=== PATIENT | female | born 1930 | race Caucasian/White ===

== ENCOUNTER 2017-03-13 10:33 | Inpatient (IN) ==
[2017-03-13 10:54] LABS: MANUAL DIFF NEEDED? NO
[2017-03-13 11:01] LABS: BASO% 0.2 % (0.0-0.8); EOS# 0.03 X1000 (0.0-0.7); EOS% 0.5 % (0.0-10.0); HEMATOCRIT 36.5 % (37.0-47.0); HEMOGLOBIN 11.6 g/dL (12.0-16.0); IMM GRAN# 0.02 X1000 (0.0-0.04); IMM GRAN% 0.3 % (0.0-0.5); LYMPH# 0.68 X1000 (1.2-3.4); LYMPH% 11.2 % (20.5-51.1); MCHC 31.8 g/dL (33-37); MCV 94.3 FL (81-99); MONO# 0.51 X1000 (0.11-0.59); MONO% 8.4 % (1.7-9.3); MPV 10.9 FL (7.4-10.4); NEUT% 79.4 % (42.2-75.2); PLT 162 X1000 (130-400); RBC 3.87 XMIL (4.2-5.4)
--- NOTE | 2017-03-13 11:02 | EKG Report ---
Test Performed on : 03/13/2017 10:33:53 AM Test Reason : Chest Pain Blood Pressure : / mmHG Vent. Rate : 059 BPM Atrial Rate : 375 BPM P-R Int : 000 ms QRS Dur : 096 ms QT Int : 414 ms P-R-T Axes : 000 -34 054 degrees QTc Int : 409 ms Junctional rhythm. Left axis deviation Possible Anterior infarct (cited on or before 04-JAN-2014) Abnormal ECG When compared with ECG of 04-JAN-2014 15:54, Junctional rhythm. has replaced Sinus rhythm. Questionable change in initial forces of Lateral leads QT has shortened Unconfirmed Result
[2017-03-13 11:07] LABS: INR 1.39; PROTIME 14.9 Seconds (9.2-11.7)
[2017-03-13 11:18] LABS: ALBUMIN 4.2 g/dL (3.5-5.0); CALCIUM 9.3 mg/dL (8.8-10.2); MAGNESIUM 2.2 mg/dL (1.5-2.7); POTASSIUM 5.4 mmol/L (3.5-5.1); TOTAL BILIRUBIN 0.83 mg/dL (0.20-1.00); TOTAL PROTEIN 7.4 g/dL (6.3-8.3)
--- NOTE | 2017-03-13 11:34 | Diag Imaging Result Doc PS360 ---
EXAM: CHEST-PORTABLE HISTORY: fall TECHNIQUE: AP portable at 1126 COMMENT: There is an air-fluid level in a hiatal hernia. Left ventricle is somewhat prominent. There are some fibrotic opacities in the lung bases particularly in the area of the lingula. No evidence of pneumothorax or pleural effusion is present. The regional skeleton appears to be intact. IMPRESSION: Borderline cardiomegaly and hiatal hernia. Minimal atelectasis. Electronically signed by Rao Carmen 03/13/2017 11:31 AM
--- NOTE | 2017-03-13 11:42 | Diag Imaging Result Doc PS360 ---
EXAM: CT HEAD/C-SPINE W/O CONTRAST HISTORY: fall TECHNIQUE: CT of the head without contrast, CT of the cervical spine, low dose protocol COMMENT: The current study is compared with that of 01/18/2016. There is no evidence of mass effect, bleed, abnormal extra-axial fluid collection, or hydrocephalus. Compared to the previous study there has been no significant change. Cervical spine: There are degenerative changes in the atlantoaxial joint and particularly at the disc spaces of the C4-5, C5-6, and C6-C7 levels. There is also facet arthropathy at multiple levels with ankylosis of both C4-5 facet joints. No prevertebral soft tissue swelling is present and there is no evidence of acute fracture or subluxation. The appearance of the cervical spine has not changed significantly since 01/18/2016. IMPRESSION: No evidence of acute disease. Electronically signed by Rao Carmen 03/13/2017 11:39 AM
[2017-03-13 11:47] LABS: CK INDEX 3.2 (0.0-2.5); CK-MB 7.48 ng/mL (0.0-5.0)
[2017-03-13] MEDS: NS 1,000 ML IV SCH (22:39)
[2017-03-14 06:28] LABS: MANUAL DIFF NEEDED? NO
[2017-03-14 06:32] LABS: BASO% 0.2 % (0.0-0.8); EOS# 0.09 X1000 (0.0-0.7); EOS% 1.8 % (0.0-10.0); HEMATOCRIT 34.1 % (37.0-47.0); HEMOGLOBIN 10.7 g/dL (12.0-16.0); LYMPH# 0.66 X1000 (1.2-3.4); LYMPH% 13.3 % (20.5-51.1); MCH 29.6 PG (27-31); MCHC 31.4 g/dL (33-37); MCV 94.5 FL (81-99); MONO# 0.49 X1000 (0.11-0.59); MONO% 9.8 % (1.7-9.3); MPV 10.2 FL (7.4-10.4); NEUT% 74.9 % (42.2-75.2); PLT 151 X1000 (130-400); RBC 3.61 XMIL (4.2-5.4)
[2017-03-14 06:42] LABS: INR 1.64; PROTIME 17.8 Seconds (9.2-11.7)
[2017-03-14 06:50] LABS: ALBUMIN 3.8 g/dL (3.5-5.0); CALCIUM 8.5 mg/dL (8.8-10.2); POTASSIUM 4.6 mmol/L (3.5-5.1); TOTAL BILIRUBIN 0.68 mg/dL (0.20-1.00); TOTAL PROTEIN 6.5 g/dL (6.3-8.3)
[2017-03-14 07:24] LABS: CK INDEX 1.5 (0.0-2.5); CK-MB 9.08 ng/mL (0.0-5.0)
[2017-03-14 07:26] LABS: URINE MICRO REVIEW NEEDED? NO; URINE SOURCE VOIDED
[2017-03-14 07:35] LABS: BILIRUBIN URINE NEGATIVE (NEGATIVE); BLOOD URINE TRACE (NEGATIVE); COLOR YELLOW; GLUCOSE URINE NEGATIVE (NEGATIVE); LEUKOCYTES URINE NEGATIVE (NEGATIVE); NITRITE URINE NEGATIVE (NEGATIVE); PH URINE 5.5; PROTEIN URINE TRACE mg/dL (NEGATIVE); SP GRAVITY URINE 1.012; TURBIDITY URINE CLEAR (CLEAR); UROBILINOGEN URINE NORMAL (NORMAL)
[2017-03-14 07:36] LABS: UR EPITHELIAL CELLS <10 /HPF (<10); URINE BACTERIA NEGATIVE /HPF; URINE RBC <10 /HPF (<10); URINE WBC <10 /HPF (<10)
--- NOTE | 2017-03-14 08:49 | EKG Report ---
Test Performed on : 03/14/2017 05:56:20 AM Test Reason : cp Blood Pressure : / mmHG Vent. Rate : 058 BPM Atrial Rate : 058 BPM P-R Int : 160 ms QRS Dur : 102 ms QT Int : 446 ms P-R-T Axes : 047 -46 050 degrees QTc Int : 437 ms Sinus bradycardia. Left anterior fascicular block Cannot rule out Anterior infarct (cited on or before 04-JAN-2014) Abnormal ECG When compared with ECG of 13-MAR-2017 10:33, (Unconfirmed) Sinus rhythm. has replaced Junctional rhythm. Confirmed by Kulwinder DAVIS, Shmuel Leon ([id number]) on 03/16/2017 6:37:24 AM
[2017-03-14] MEDS: NORVASC PO SCH (09:24)
[2017-03-14] MEDS: FOLIC ACID PO SCH (09:24)
[2017-03-14] MEDS: CITRACAL + D PO SCH (09:24)
[2017-03-14] MEDS: CELEXA PO SCH (09:24)
[2017-03-14] MEDS: ZYLOPRIM PO SCH (09:24)
[2017-03-14] MEDS: NS 1,000 ML IV SCH (17:26)
[2017-03-14] MEDS: TYLENOL PO PRN (19:06)
[2017-03-15 05:04] LABS: ALLEN TEST YES; BE -0.3 mmoll (-3.0-3.0); BLOOD TYPE ARTERIAL; DRAW SITE R RADIAL; METHB 1.3 % (0.0-1.5); MODALITY CANNULA; O2(CT) 22.2 mL/dL (15.0-23.0); PCO2(98.6) 49 mmHg (35-45); PO2(98.6) 68 mmHg (60-100); SAMPLE BLOOD; SAO2 94.7 % (95.0-100.0); THB 17.2 g/dL (11.5-17.4); pH(98.6) 7.34 (7.35-7.45)
[2017-03-15] MEDS: TYLENOL PO PRN ×2 (05:08→23:30)
[2017-03-15 06:49] LABS: INR 1.35; PROTIME 14.4 Seconds (9.2-11.7)
[2017-03-15 06:56] LABS: HEMATOCRIT 30.5 % (37.0-47.0); HEMOGLOBIN 9.9 g/dL (12.0-16.0); MCH 30.5 PG (27-31); MCHC 32.5 g/dL (33-37); MCV 93.8 FL (81-99); MPV 10.7 FL (7.4-10.4); RBC 3.25 XMIL (4.2-5.4)
[2017-03-15 07:06] LABS: CALCIUM 8.2 mg/dL (8.8-10.2); POTASSIUM 4.3 mmol/L (3.5-5.1)
[2017-03-15 07:32] LABS: CK INDEX 1.5 (0.0-2.5); CK-MB 6.32 ng/mL (0.0-5.0)
[2017-03-15] MEDS: FOLIC ACID PO SCH (08:27)
[2017-03-15] MEDS: CELEXA PO SCH (08:27)
[2017-03-15] MEDS: CITRACAL + D PO SCH (08:27)
[2017-03-15] MEDS: ZYLOPRIM PO SCH (08:28)
[2017-03-15] MEDS: NORVASC PO SCH (08:28)
--- NOTE | 2017-03-15 09:36 | Diag Imaging Result Doc PS360 ---
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 The arthroplasty hardware is in the expected position. There is no radiographic evidence of hardware loosening. There is no discrete fracture, dislocation, or significant intrinsic osseous lesion, otherwise. There are degenerative changes at the left SI joint. The bones are osteopenic The surrounding soft tissues are essentially unremarkable. IMPRESSION: Right arthroplasty hardware is grossly unremarkable. No definite acute pathology. Electronically signed by Rickie Solorzano 03/15/2017 9:34 AM
--- NOTE | 2017-03-15 09:39 | Diag Imaging Result Doc PS360 ---
EXAM: LUMBAR SPINE INDICATION: pain TECHNIQUE: 6 views COMPARISON: None. FINDINGS: The bones are osteopenic. There is multilevel facet arthropathy. There is associated mild anterolisthesis of L4 on L5. There is degenerative disc disease at L5-S1 with loss of disc space and marginal osteophyte formation. The vertebral body heights are well-maintained. There is no evidence of fracture or intrinsic osseous lesion, otherwise. IMPRESSION: Osteopenia and degenerative changes as described. No definite acute osseous abnormality. Electronically signed by Rickie Solorzano 03/15/2017 9:36 AM
[2017-03-15] MEDS: PRAVACHOL PO SCH (11:26)
[2017-03-15] MEDS: LASIX PO SCH (11:26)
[2017-03-15] MEDS: COZAAR PO SCH (11:26)
[2017-03-15] MEDS: NS 1,000 ML IV SCH (18:45)
[2017-03-16] MEDS: ZYLOPRIM PO SCH (08:25)
[2017-03-16] MEDS: NORVASC PO SCH (08:25)
[2017-03-16] MEDS: CITRACAL + D PO SCH (08:25)
[2017-03-16] MEDS: LASIX PO SCH (08:25)
[2017-03-16] MEDS: CELEXA PO SCH (08:25)
[2017-03-16] MEDS: COZAAR PO SCH (08:25)
[2017-03-16] MEDS: PRAVACHOL PO SCH (08:25)
[2017-03-16] MEDS: FOLIC ACID PO SCH (08:26)
[2017-03-16] MEDS: NS 1,000 ML IV SCH (08:26)
[2017-03-16] MEDS ORDERED: PREVNAR 13 IM ONE (09:01)
[2017-03-16] MEDS ORDERED: FLUZONE QUAD 2017-2018 SYRINGE IM ONE (09:01)
[2017-03-16 15:32] VITALS: BP 138/50
== END 2017-03-16 16:29 ==
LOC: ED 10:33 → EDIPHOLD 12:37 → 3N 18:26
PROVIDERS: ADMIT Internal Medicine; ATTEND Internal Medicine